=== PATIENT | female | born 1960 | race Caucasian/White ===

== ENCOUNTER 2024-03-30 14:58 | Inpatient (IN) | payer BC, MEDICARE ==
--- NOTE | 2024-03-30 15:44 | ED ---
General Adult HPI - General Chief complaint: Fall Stated complaint: Fracture Time Seen by Provider: 03/30/24 15:10 Source: patient, EMS Mode of arrival: EMS Limitations: no limitations - History of Present Illness Initial comments: 63-year-old female presents the emergency department after a slip on ice. Patient fell on top of her right ankle. Complains of pain in the right ankle and lower leg. Patient denies hitting her head. No loss of consciousness. She was given 2 mg of morphine from EMS and states it took her pain from a 10 to a 5. Patient also took 0.5 mg of lorazepam at home which is prescribed to her. Patient denies that she was outside for an extended period of time. Was able to crawl to call for EMS. Denies any chest pain, difficulty breathing, abdominal pain, nausea, vomiting. Patient is not on any blood thinners. No other alleviating, precipitating or modifying factors - Related Data Home Medications Medication Instructions Recorded Confirmed Acetaminophen [Tylenol 8 Hour] 650 mg PO DAILY 03/30/24 03/30/24 Acetaminophen [Tylenol 8 Hour] 650 mg PO DAILY PRN 03/30/24 03/30/24 Albuterol Sulfate [Ventolin HFA] 2 puff INHALATION RT-QID PRN 03/30/24 03/30/24 Clonazepam Odt 0.5mg 0.5 mg PO BID 03/30/24 03/30/24 L.acidoph,Paracasei, B.lactis 1 cap PO DAILY 03/30/24 03/30/24 [Probiotic] Montelukast [Singulair] 10 mg PO HS 03/30/24 03/30/24 Propylene Glycol/Peg 400/Pf 1 drop BOTH EYES QID PRN 03/30/24 03/30/24 [Systane 0.3-0.4% Ophth Dropperette] Rosuvastatin Calcium [Crestor] 40 mg PO HS 03/30/24 03/30/24 Travoprost [Travatan Z 0.004%] 1 drop BOTH EYES HS 03/30/24 03/30/24 Umeclidinium Brm/Vilanterol Tr 1 puff INHALATION RT-DAILY 03/30/24 03/30/24 [Anoro Ellipta 62.5-25 Mcg INH] Allergies Allergy/AdvReac Type Severity Reaction Status Date / Time Sulfa (Sulfonamide Allergy Rash/Hives Verified 03/31/24 13:13 Antibiotics) codeine AdvReac Nausea & Verified 03/31/24 13:13 Vomiting Review of Systems ROS Statement: Those systems with pertinent positive or pertinent negative responses have been documented in the HPI. ROS Other: All systems not noted in ROS Statement are negative. Past Medical History Past Medical History: Hyperlipidemia History of Any Multi-Drug Resistant Organisms: None Reported Past Surgical History: Cholecystectomy, Hysterectomy, Orthopedic Surgery, Tonsillectomy, Tubal Ligation Additional Past Surgical History / Comment(s): right shoulder Past Psychological History: Anxiety Smoking Status: Current every day smoker Past Alcohol Use History: Rare Past Drug Use History: None Reported General Exam Limitations: no limitations General appearance: alert, in no apparent distress Head exam: Present: atraumatic, normocephalic, normal inspection Eye exam: Present: normal appearance, PERRL, EOMI. Absent: scleral icterus, conjunctival injection, periorbital swelling ENT exam: Present: normal exam, mucous membranes moist Neck exam: Present: normal inspection. Absent: tenderness, meningismus, lym phadenopathy Respiratory exam: Present: normal lung sounds bilaterally. Absent: respiratory distress, wheezes, rales, rhonchi, stridor Cardiovascular Exam: Present: regular rate, normal rhythm, normal heart sounds. Absent: systolic murmur, diastolic murmur, rubs, gallop, clicks GI/Abdominal exam: Present: soft, normal bowel sounds. Absent: distended, tenderness, guarding, rebound, rigid Extremities exam: Present: other (Right lower extremity is in a splint. There is no ecchymosis, abrasion or laceration. Mild swelling. 2+ DP and PT pulses. Intact sensation. Cap refill <3 seconds) Course Vital Signs 03/30/24 03/30/24 15:01 19:47 Temperature 97.8 F 97.6 F Pulse Rate 89 84 Respiratory 20 20 Rate Blood Pressure 123/81 125/57 O2 Sat by Pulse 94 L 93 L Oximetry Procedures - Orthopedic Splinting/Casting Injury #1 Side: right Lower Extremity Injury Location: long leg Lower Extremity Immobilizer: posterior splint, stirrup splint, Ramon wrap Medical Decision Making - Medical Decision Making Was pt. sent in by a medical professional or institution (, PA, ANESTHESIA ATTENDING, urgent care, hospital, or usp...) When possible be specific @ -No Did you speak to anyone other than the patient for history (EMS, parent, family, police, friend...)? What history was obtained from this source @ -Spoke with EMS for history Did you review nursing and triage notes (agree or disagree)? Why? @ -I reviewed and agree with nursing and triage notes Were old charts reviewed (outside hosp., previous admission, EMS record, old EKG, old radiological studies, urgent care reports/EKG's, usp records)? Report findings @ -No old charts were reviewed Differential Diagnosis (chest pain, altered mental status, abdominal pain women, abdominal pain men, vaginal bleeding, weakness, fever, dyspnea, syncope, headache, dizziness, GI bleed, back pain, seizure, CVA, palpatations, mental health, musculoskeletal)? @ -Differential Musculoskeletal Muscular strain, contusion, ligament sprain, fracture, arthritis, septic arthritis, bursitis, cellulitis, muscle spasm, nerve compression, DVT, arterial occlusion, herpes zoster, electrolyte abnormality, tumor.... This is not meant to be in all inclusive list EKG interpreted by me (3pts min.). @ -yes which demonstrates sinus rhythm with a rate of 86. MS interval 112. QRS 86. QTc of 409. No acute ST segment elevations or depressions X-rays interpreted by me (1pt min.). @ -Yes which demonstrates distal tibia fracture with a proximal fibular fracture CT interpreted by me (1pt min.). @ -None done U/S interpreted by me (1pt. min.). @ -None done What testing was considered but not performed or refused? (CT, X-rays, U/S, labs)? Why? @ -None What meds were considered but not given or refused? Why? @ -None Did you discuss the management of the patient with other professionals (professionals i.e. DrAugustine, PA, ANESTHESIA ATTENDING, lab, RT, psych nurse, adoption social worker, laboratory assistant, teacher, parole hearing officer, vocational case manager)? Give summary @ -Spoke with Dr. Nam who will admit the patient. Spoke with Dr. Lawrence for medical clearance Was smoking cessation discussed for >3mins.? @ -No Was critical care preformed (if so, how long)? @ -No Were there social determinants of health that impacted care today? How? (Homelessness, low income, unemployed, alcoholism, drug addiction, transportation, low edu. Level, literacy, decrease access to med. care, [facility], rehab)? @ -No Was there de-escalation of care discussed even if they declined (Discuss DNR or withdrawal of care, Hospice)? DNR status @ -No What co-morbidities impacted this encounter? (DM, HTN, Smoking, COPD, CAD, Cancer, CVA, ARF, Chemo, Hep., AIDS, mental health diagnosis, sleep apnea, morbid obesity)? @ -COPD Was patient admitted / discharged? Hospital course, mention meds given and route, prescriptions, significant lab abnormalities, going to OR and other pertinent info. @ -Upon arrival patient seen and evaluated in bed 31. Thorough history and physical exam was performed. Patient administered pain medications. Laboratory studies are conducted. X-ray performed demonstrating left distal tibia and proximal fibula fracture. Results are discussed with the patient. I spoke with Dr. Nam. He will admit the patient. [facility] is notified that they are on for medical clearance Undiagnosed new problem with uncertain prognosis? @ -No Drug Therapy requiring intensive monitoring for toxicity (Heparin, Nitro, Insulin, Cardizem)? @ -No Were any procedures done? @ -right leg splint Diagnosis/symptom? @ -Acute fall, acute right fibular and tibia fracture Acute, or Chronic, or Acute on Chronic? @ -Acute Uncomplicated (without systemic symptoms) or Complicated (systemic symptoms)? @ -complicated Side effects of treatment? @ -No Exacerbation, Progression, or Severe Exacerbation? @ -No Poses a threat to life or bodily function? How? (Chest pain, [place], [place], pneumonia, PE, COPD, DKA, ARF, appy, cholecystitis, CVA, Diverticulitis, Homicidal, Suicidal, threat to staff... and all critical care pts) @ -No - Lab Data Result diagrams: 04/02/24 04:41 04/02/24 15:03 Lab Results 03/30/24 03/30/24 03/30/24 Range/Units 17:40 17:40 17:40 WBC 11.4 H (3.8-10.6) k/uL RBC 4.90 (3.80-5.40) m/uL Hgb 14.9 (11.4-16.0) gm/dL Hct 46.3 H (34.0-46.0) % MCV 94.5 (80.0-100.0) fL MCH 30.5 (25.0-35.0) pg MCHC 32.2 (31.0-37.0) g/dL RDW 12.8 (11.5-15.5) % Plt Count 259 (150-450) k/uL MPV 7.7 Immature Gran % (Auto) % Absolute Nucleated RBC % Neutrophils % 79 % Lymphocytes % 16 % Monocytes % 4 % Eosinophils % 1 % Basophils % 0 % Immature Gran # (0.00-0.04) X 10*3/uL Neutrophils # 9.0 H (1.3-7.7) k/uL Lymphocytes # 1.8 (1.0-4.8) k/uL Monocytes # 0.5 (0-1.0) k/uL Eosinophils # 0.1 (0-0.7) k/uL Basophils # 0.1 (0-0.2) k/uL NRBC/100 WBC Diff (0.00-0.01) X 10*3/uL PT (10.0-12.5) sec INR (<1.2) APTT (22.0-30.0) sec Sodium 135 L (137-145) mmol/L Potassium 4.1 (3.5-5.1) mmol/L Chloride 102 (98-107) mmol/L Carbon Dioxide 27 (22-30) mmol/L Anion Gap 6 mmol/L BUN 12 (7-17) mg/dL Creatinine 0.62 (0.52-1.04) mg/dL Est GFR (CKD-EPI) (>=60) Est GFR (CKD-EPI)AfAm >90 (>60 ml/min/1.73 sqM) Est GFR (CKD-EPI)NonAf >90 (>60 ml/min/1.73 sqM) BUN/Creatinine Ratio (12.00-20.00) Ratio Glucose 113 H (74-99) mg/dL Estimated Ave Glu mg/dL 111 mg/dL Hemoglobin A1c 5.5 (<=6.0) % Calcium 8.9 (8.4-10.2) mg/dL 03/30/24 03/31/24 03/31/24 Range/Units 18:10 03:03 03:03 WBC 6.01 (3.8-10.6) k/uL RBC 4.44 (3.80-5.40) m/uL Hgb 13.3 (11.4-16.0) gm/dL Hct 42.9 (34.0-46.0) % MCV 96.6 (80.0-100.0) fL MCH 30.0 (25.0-35.0) pg MCHC 31.0 L (31.0-37.0) g/dL RDW 12.6 (11.5-15.5) % Plt Count 228 (150-450) k/uL MPV 10.4 Immature Gran % (Auto) 0.30 % Absolute Nucleated RBC 0 % Neutrophils % 74.1 % Lymphocytes % 15.5 % Monocytes % 9.3 % Eosinophils % 0.3 % Basophils % 0.5 % Immature Gran # 0.02 (0.00-0.04) X 10*3/uL Neutrophils # 4.45 (1.3-7.7) k/uL Lymphocytes # 0.93 (1.0-4.8) k/uL Monocytes # 0.56 (0-1.0) k/uL Eosinophils # 0.02 L (0-0.7) k/uL Basophils # 0.03 (0-0.2) k/uL NRBC/100 WBC Diff 0 (0.00-0.01) X 10*3/uL PT 11.1 (10.0-12.5) sec INR 1.0 (<1.2) APTT 24.1 (22.0-30.0) sec Sodium 139 (137-145) mmol/L Potassium 4.4 (3.5-5.1) mmol/L Chloride 102 (98-107) mmol/L Carbon Dioxide 26.8 (22-30) mmol/L Anion Gap 10.20 mmol/L BUN 11.2 (7-17) mg/dL Creatinine 0.6 (0.52-1.04) mg/dL Est GFR (CKD-EPI) 100 (>=60) Est GFR (CKD-EPI)AfAm (>60 ml/min/1.73 sqM) Est GFR (CKD-EPI)NonAf (>60 ml/min/1.73 sqM) BUN/Creatinine Ratio 18.67 (12.00-20.00) Ratio Glucose 115 H (74-99) mg/dL Estimated Ave Glu mg/dL mg/dL Hemoglobin A1c (<=6.0) % Calcium 8.6 L (8.4-10.2) mg/dL Disposition Clinical Impression: Fall, Right tibial fracture, Right fibular fracture Disposition: ADMITTED IP TO THIS [facility] Condition: Stable Is patient prescribed a controlled substance at d/c from ED?: No Time of Disposition: 16:56 Decision to Admit Reason: Admit from EC Decision Date: 03/30/24 Decision Time: 16:56
[2024-03-30] MEDS: HYDROmorphone 1 MG/ML 1 ML SYRINGE IVP STA (15:52)
[2024-03-30] MEDS: HYDROmorphone 1 MG/ML 1 ML SYRINGE IM STA (15:55)
--- NOTE | 2024-03-30 16:15 | XR ---
EXAMINATION TYPE: XR ankle complete RT, XR tibia fibula RT DATE OF EXAM: 03/30/2024 COMPARISON: NONE HISTORY: Pain, fall TECHNIQUE: Frontal, lateral and oblique images of the right ankle are obtained. Frontal and lateral views of the right tibia/fibula were obtained. COMPARISON: None. FINDINGS: Acute oblique fracture of the distal tibial diaphysis with approximately 8 mm of shift of the distal fracture fragment anterior laterally. There is mild shortening. Additional mildly displace d oblique fracture of the proximal tibial metadiaphysis. Overlying soft tissue swelling. No dislocati on. No radiopaque foreign body. Ankle mortise appears intact. IMPRESSION: Acute displaced oblique fractures of the distal tibial diaphysis and proximal fibular metadiaphysis. [facility], , 03/30/2024 4:12 PM
[2024-03-30] MEDS ORDERED: NALOXONE 0.4 MG/ML 1 ML VIAL IV PRN (16:56)
[2024-03-30 17:59] LABS: Basophils # (A) 0.1 k/uL (0-0.2); Basophils % (A) 0 %; Eosinophils # (A) 0.1 k/uL (0-0.7); Eosinophils % (A) 1 %; HCT 46.3 % (34.0-46.0); HGB 14.9 gm/dL (11.4-16.0); Lymphocytes # (A) 1.8 k/uL (1.0-4.8); Lymphocytes % (A) 16 %; MCH 30.5 pg (25.0-35.0); MCHC 32.2 g/dL (31.0-37.0); MCV 94.5 fL (80.0-100.0); Mean Platelet Volume 7.7; Monocytes # (A) 0.5 k/uL (0-1.0); Monocytes % (A) 4 %; Neutrophils % (A) 79 %; Platelet Count 259 k/uL (150-450); RDW 12.8 % (11.5-15.5); WBC 11.4 k/uL (3.8-10.6)
[2024-03-30 18:12] LABS: African American GFR (CKD) >90 (>60 ml/min/1.73 sqM); Anion Gap 6 mmol/L; Blood Urea Nitrogen 12 mg/dL (7-17); Calcium 8.9 mg/dL (8.4-10.2); Carbon Dioxide 27 mmol/L (22-30); Chloride 102 mmol/L (98-107); Glucose 113 mg/dL (74-99); Non-African American GFR(CKD) >90 (>60 ml/min/1.73 sqM); Potassium 4.1 mmol/L (3.5-5.1); Sodium 135 mmol/L (137-145)
[2024-03-30 18:39] LABS: Partial Thromboplastin Time 24.1 sec (22.0-30.0); Prothrombin Time 11.1 sec (10.0-12.5)
--- NOTE | 2024-03-30 19:39 | XR ---
EXAMINATION TYPE: XR chest 2V DATE OF EXAM: 03/30/2024 5:14 PM COMPARISON: None. CLINICAL INDICATION: Female, 63 years old with history of pre operative eval, TECHNIQUE: XR chest 2V view(s) obtained. FINDINGS: The heart size is normal. The pulmonary vasculature is normal. The lungs are clear. IMPRESSION: 1. No acute pulmonary process. [facility], , 03/30/2024 7:37 PM
[2024-03-30] MEDS: SODIUM CHLORIDE 0.9% 1,000 ML IV SCH (21:00)
[2024-03-30] MEDS: MORPHINE SULFATE 4 MG/ML SYRINGE IVP PRN (21:00)
[2024-03-30] MEDS: clonazePAM 0.5 MG TAB PO SCH (21:53)
[2024-03-30] MEDS: MONTELUKAST 10 MG TAB PO SCH (21:53)
--- NOTE | 2024-03-30 23:13 | P.CONS ---
History of Present Illness - Reason for Consult Consult date: 03/30/24 - History of Present Illness Patient is a 63-year-old female with past medical history significant for COPD not on home oxygen, anxiety, and hyperlipidemia. She is admitted to orthopedic surgery and we are consulted for preoperative medical evaluation. She presented to the emergency department today after she slipped on ice, twisted her right leg, and fell onto her buttocks while getting out of the car. She denied hi tting her head or loss of consciousness. She states that she was only outside for about 5 minutes after this fall as she was able to crawl inside and her niece called EMS. She denies fever/chills, nausea/vomiting, chest pain, dyspnea, cough, palpitations, hematuria, melena/hematochezia. She reports unchanged intermittent epigastric pain. She is not on anticoagulation. At this time she has no significant complaints other than the ankle pain. She is a current smoker (1+ppd). She denies alcohol/recreational drug use. She is ambulatory without assistance normally. patient denies any episodes of OH, CHF exacerbation , arrhythmia or syncope in the past 1 month, denies any history of CVA, CAD, CHF, DM , or CKD Review of Systems Pertinent positives and negatives as discussed in HPI, a complete review of systems was performed and all other systems are negative. Past Medical History Past Medical History: COPD, Hyperlipidemia History of Any Multi-Drug Resistant Organisms: None Reported Past Surgical History: Cholecystectomy, Hysterectomy, Orthopedic Surgery, Tonsillectomy, Tubal Ligation Additional Past Surgical History / Comment(s): right shoulder Past Psychological History: Anxiety Smoking Status: Current every day smoker Past Alcohol Use History: Rare Past Drug Use History: None Reported Medications and Allergies Home Medications Medication Instructions Recorded Confirmed Type Acetaminophen [Tylenol 8 Hour] 650 mg PO DAILY 03/30/24 03/30/24 History Acetaminophen [Tylenol 8 Hour] 650 mg PO DAILY PRN 03/30/24 03/30/24 History Albuterol Sulfate [Ventolin HFA] 2 puff INHALATION RT-QID PRN 03/30/24 03/30/24 History Clonazepam Odt 0.5mg 0.5 mg PO BID 03/30/24 03/30/24 History L.acidoph,Paracasei, B.lactis 1 cap PO DAILY 03/30/24 03/30/24 History [Probiotic] Montelukast [Singulair] 10 mg PO HS 03/30/24 03/30/24 History Propylene Glycol/Peg 400/Pf 1 drop BOTH EYES QID PRN 03/30/24 03/30/24 History [Systane 0.3-0.4% Ophth Dropperette] Rosuvastatin Calcium [Crestor] 40 mg PO HS 03/30/24 03/30/24 History Travoprost [Travatan Z 0.004%] 1 drop BOTH EYES HS 03/30/24 03/30/24 History Umeclidinium Brm/Vilanterol Tr 1 puff INHALATION RT-DAILY 03/30/24 03/30/24 History [Anoro Ellipta 62.5-25 Mcg INH] Allergies Allergy/AdvReac Type Severity Reaction Status Date / Time Sulfa (Sulfonamide Allergy Rash/Hives Verified 03/30/24 18:23 Antibiotics) Physical Exam Vitals: Vital Signs Temp Pulse Resp BP Pulse Ox 03/30/24 15:01 97.8 F 89 20 123/81 94 L Intake and Output 03/30/24 03/30/24 03/30/24 06:59 14:59 22:59 Other: Weight 74.843 kg Vital signs reviewed General: Nontoxic, no distress, appears stated age, well-appearing Derm: Warm, dry, intact, no cyanosis Head: Atraumatic, normocephalic, symmetric Eyes: EOMI, anicteric sclera, PERRL Ears: Normal appearing, no external lesions, hearing intact Nose: Normal appearing, no external lesions Mouth: No lip lesion, mucus membranes moist, no tonsilar hypertrophy or exudate; partial edentulism Neck: Supple, without lesions, trachea midline Cardiovascular: S1-S2 regular, no murmur, no pedal edema Lungs: Mild diffuse expiratory wheezes, no rhonchi, no rales, no accessory muscle use Abdominal: Soft, mild epigastric tenderness (not new, intermittent), bowel sounds present Extremities: Muscle strength 5/5 bilateral UE and LLE, radial pulses 2+ bilateral, posterior tibial pulse 1+ LLE Neuro: Alert, oriented x 4, gross neurological examination did not reveal any focal deficits. Cranial nerves II to XII grossly intact. Psych: Appropriate affect and mood Results CBC & Chem 7: 03/30/24 17:40 03/30/24 17:40 Labs: Abnormal Lab Results - Last 24 Hours (Table) 03/30/24 03/30/24 Range/Units 17:40 17:40 WBC 11.4 H (3.8-10.6) k/uL Hct 46.3 H (34.0-46.0) % Neutrophils # 9.0 H (1.3-7.7) k/uL Sodium 135 L (137-145) mmol/L Glucose 113 H (74-99) mg/dL Assessment and Plan Assessment: Patient is a 63-year-old female with a past medical history significant for COPD not on home oxygen and hyperlipidemia admitted for ORIF of the right ankle. Plan: Active #. Leukocytosis with neutrophilic predominance, likely reactive to acute fracture WBC 11.4 Monitor CBC afebrile #. Hyperglycemia No history of diabetes or steroid use Obtain A1c #. Nicotine dependence Discussed smoking cessation Patient currently using nicotine patch prior to arrival in the hospital #. Acute displaced oblique fractures of the distal tibial diaphysis and proximal fibular metadiaphysis Management per orthopedic surgery Pain management per orthopedic surgery Chronic #. COPD not on home oxygen Continue home albuterol 4 times daily as needed Continue home Singulair 10 mg p.o. at bedtime Continue home Anoro Ellipta daily #. Hyperlipidemia Continue home Crestor 40 mg p.o. at bedtime CODE STATUS: Full Code Preoperative evaluation RCRI class I, CUELLAR 0.15% EKG shows normal sinus rhythm with ventricular rate 86 bpm, OH 112 ms, QRS 86 ms, QTc 409 ms Chest x-ray: No acute pulmonary process METS >4 Patient is low risk for an intermediate risk procedure. Patient is medically optimized. consider bipap post operatively to minimize chances of extubation failure due to COPD and body habitus, and encourage use of IS post operatively I have seen and evaluated the patient today. I Discussed the case with the resident and agree with the resident's findings I edited the assessment and plan as necessary as documented in the resident's note.
[2024-03-31] MEDS: HYDROcodone/APAP 5-325MG 1 EACH TAB PO PRN (00:31)
[2024-03-31] MEDS: ONDANSETRON 4 MG/2 ML VIAL IVP PRN (02:11)
[2024-03-31 08:53] LABS: Basophils # (A) 0.03 X 10*3/uL (0.00-0.10); Basophils % (A) 0.5 %; Eosinophils # (A) 0.02 X 10*3/uL (0.04-0.35); Eosinophils % (A) 0.3 %; HCT 42.9 % (37.2-46.3); HGB 13.3 g/dL (12.0-15.0); Lymphocytes # (A) 0.93 X 10*3/uL (0.90-5.00); Lymphocytes % (A) 15.5 %; MCV 96.6 FL (80.0-97.0); Mean Platelet Volume 10.4 FL (9.5-12.2); Monocytes # (A) 0.56 X 10*3/uL (0.20-1.00); Monocytes % (A) 9.3 %; NRBC Per 100 WBC 0 X 10*3/uL (0.00-0.01); Neutrophils # (A) 4.45 X 10*3/uL (1.80-7.70); Neutrophils % (A) 74.1 %; Platelet Count 228 X 10*3/uL (140-440); RBC 4.44 X 10*6/uL (4.10-5.20); RDW 12.6 % (11.5-14.5); WBC 6.01 X 10*3/uL (4.50-10.00)
[2024-03-31 08:55] LABS: BUN/Creat Ratio 18.67 Ratio (12.00-20.00); Blood Urea Nitrogen 11.2 mg/dL (9.0-27.0); Calcium 8.6 mg/dL (8.7-10.3); Carbon Dioxide 26.8 mmol/L (21.6-31.8); Chloride 102 mmol/L (96-109); Glucose 115 mg/dL (70-110); Potassium 4.4 mmol/L (3.5-5.5); Sodium 139 mmol/L (135-145)
[2024-03-31] MEDS: ALBUTEROL NEBULIZED 2.5 MG/3 ML INHALATION PRN (09:20)
[2024-03-31] MEDS: TIOTROPIUM 2.5 MCG INHALER INHALATION SCH (09:20)
[2024-03-31] MEDS: FORMOTEROL FUMARATE 20 MCG/2 ML NEBU INHALATION SCH (09:20)
--- NOTE | 2024-03-31 10:32 | P.HPOR ---
History of Present Illness H&P Date: 03/31/24 Chief Complaint: Right lower extremity pain status post fall The patient is seen and examined at bedside. She is a 63-year-old female who is from [place] was here visiting her father and was getting out of her car and slipped and fell. She had sudden acute pain in her right leg. She is with her daughter. She did not lose consciousness but was unable to get up and had obvious deformity in her right lower extremity with her pain. She denies any chest pain or shortness of breath. She denies any prior history of problems or injury in the right leg. She denied any problems in her upper extremities her neck or back or her other leg. She says she does have history of COPD and emphysema. She has been on disability because of this for several years. She denies any changes to bowel bladder function. Denies any other specific pain or trauma other than her right leg Review of Systems As stated per HPI. She takes medication for her COPD emphysema. She has been a chronic smoker since she was 17 years old with greater than [id number] history. She is normally a community ambulator without any assistance. She does not use any assistive device. She does not use oxygen at home. Past Medical History Past Medical History: COPD, Hyperlipidemia History of Any Multi-Drug Resistant Organisms: None Reported Past Surgical History: Cholecystectomy, Hysterectomy, Orthopedic Surgery, Tonsillectomy, Tubal Ligation Additional Past Surgical History / Comment(s): right shoulder Past Anesthesia/Blood Transfusion Reactions: Previous Problems w/ Anesthesia Additional Past Anesthesia/Blood Transfusion Reaction / Comment(s): No hx. blood transfusion. O2 drops while under anesthesia per pt. Past Psychological History: Anxiety Smoking Status: Current every day smoker Past Alcohol Use History: Rare Past Drug Use History: None Reported Medications and Allergies Home Medications Medication Instructions Recorded Confirmed Type Acetaminophen [Tylenol 8 Hour] 650 mg PO DAILY 03/30/24 03/30/24 History Acetaminophen [Tylenol 8 Hour] 650 mg PO DAILY PRN 03/30/24 03/30/24 History Albuterol Sulfate [Ventolin HFA] 2 puff INHALATION RT-QID PRN 03/30/24 03/30/24 History Clonazepam Odt 0.5mg 0.5 mg PO BID 03/30/24 03/30/24 History L.acidoph,Paracasei, B.lactis 1 cap PO DAILY 03/30/24 03/30/24 History [Probiotic] Montelukast [Singulair] 10 mg PO HS 03/30/24 03/30/24 History Propylene Glycol/Peg 400/Pf 1 drop BOTH EYES QID PRN 03/30/24 03/30/24 History [Systane 0.3-0.4% Ophth Dropperette] Rosuvastatin Calcium [Crestor] 40 mg PO HS 03/30/24 03/30/24 History Travoprost [Travatan Z 0.004%] 1 drop BOTH EYES HS 03/30/24 03/30/24 History Umeclidinium Brm/Vilanterol Tr 1 puff INHALATION RT-DAILY 03/30/24 03/30/24 History [Anoro Ellipta 62.5-25 Mcg INH] Allergies Allergy/AdvReac Type Severity Reaction Status Date / Time Sulfa (Sulfonamide Allergy Rash/Hives Verified 03/30/24 18:23 Antibiotics) Physical Examination Osteopathic Statement: *. No significant issues noted on an osteopathic structural exam other than those noted in the History and Physical/Consult. HEENT normocephalic atraumatic. Her chest has good excursion deep inspiration expiration. Abdomen soft nontender. Neck and back are nontender to palpation range of motion. Upper extremities have full active and passive range of motio n. Left lower extremity is nontender to palpation range of motion. - Fracture right tibia/fibula Appearance: other (Her right leg is in the splint. Her calf is overall soft. She has tenderness over anterior tibia at the distal and middle third. Her thighs soft. Her toes are pink and warm and she has good motion at her toes.) Compartments: soft Proximal joint involvement: No Distal joint involvement: No Results - Labs Labs: Abnormal Lab Results - Last 24 Hours (Table) 03/30/24 03/30/24 03/31/24 Range/Units 17:40 17:40 03:03 WBC 11.4 H (3.8-10.6) k/uL Hct 46.3 H (34.0-46.0) % MCHC 31.0 L (32.0-37.0) g/dL Neutrophils # 9.0 H (1.3-7.7) k/uL Eosinophils # 0.02 L (0.04-0.35) X 10*3/uL Sodium 135 L (137-145) mmol/L Glucose 113 H (74-99) mg/dL Calcium (8.7-10.3) mg/dL 03/31/24 Range/Units 03:03 WBC (3.8-10.6) k/uL Hct (34.0-46.0) % MCHC (32.0-37.0) g/dL Neutrophils # (1.3-7.7) k/uL Eosinophils # (0.04-0.35) X 10*3/uL Sodium (137-145) mmol/L Glucose 115 H (74-99) mg/dL Calcium 8.6 L (8.7-10.3) mg/dL H & H 03/30/24 03/31/24 Range/Units 17:40 03:03 Hgb 14.9 13.3 (11.4-16.0) gm/dL Hct 46.3 H 42.9 (34.0-46.0) % Coagulation 03/30/24 Range/Units 18:10 INR 1.0 (<1.2) Result Diagrams: 03/31/24 03:03 03/31/24 03:03 - Diagnostic results Ankle/Foot x-ray: report reviewed, image reviewed (X-rays of her ankle and right tibia and fibula show a displaced spiral fracture at the shaft of the tibia at the junction of the middle and distal third. There is a proximal fibula fracture with minimal displacement.) Assessment and Plan Assessment: Acute traumatic tibia shaft and fibula fracture due to fall, neurovascularly intact History of COPD emphysema Plan: Acute traumatic tibia shaft and fibula fracture due to fall, neurovascularly intact History of COPD emphysema The patient has a new acute right tibia and fibula fracture with displacement at the tibial shaft. I think her best course of treatment would be to pursue surgical intervention for fixation. I had a long discussion with the patient regards to her injury and her tibia and fibula fracture. We discussed various treatment options ranging from conservative to surgical intervention. I recommend that the best surgical option for her would be to perform surgical internal fixation of the tibia to allow for realignment approximation and give her the best chance of healing and function for the future. I discussed the risk complications alternatives and benefits of treatment. I discussed the risks of surgery including not limited to the risk of bleeding risk of infection risk of need for further surgery risk of decrease or loss of motion loss of function malunion nonunion hardware failure nerve damage problems with anesthesia problems with her heart and lungs and the fact that surgery may not alleviate her symptoms and that she is at some increased risk of nonunion given her chronic smoking history. I answered all of her questions best my ability limb she understand and she elects to proceed with surgical intervention for right tibia open reduction internal fixation with intramedullary patricia fixation. She will sign informed consent. The patient has had evaluation with medicine service and is cleared for medical risk in regards to her surgery. She understands that she has significant COPD and emphysema which will need to be closely monitored. The patient lives in [place]. She was visiting here in [place] at the time of her injury and will pursue treatment here. She is hopeful that soon after her surgery she will be able to return to her home in [place]. I think that is reasonable to continue her healing. It is likely that her full healing will take several months and would involve physical therapy and rehabilitation in the upcoming weeks. She understands this and will try to make plans accordingly Time with Patient: Greater than 30
--- NOTE | 2024-03-31 12:23 | P.PN ---
Subjective Progress Note Date: 03/31/24 Patient is a 63-year-old female with past medical history significant for COPD not on home oxygen, anxiety, and hyperlipidemia. She is admitted to orthopedic surgery and we are consulted for preoperative medical evaluation. She presented to the emergency department today after she slipped on ice, twisted her right leg, and fell onto her buttocks while getting out of the car. She denied hitting her head or loss of consciousness. She states that she was only outside for about 5 minutes after this fall as she was able to crawl inside and her niece called EMS. She denies fever/chills, nausea/vomiting, chest pain, dyspnea, cough, palpitations, hematuria, melena/hematochezia. She reports unchanged intermittent epigastric pain. She is not on anticoagulation. At this time she has no significant complaints other than the ankle pain. She is a current smoker (1+ppd). She denies alcohol/recreational drug use. She is ambulatory without assistance normally. patient denies any episodes of NE, CHF exacerbation , arrhythmia or syncope in the past 1 month, denies any history of CVA, CAD, CHF, DM , or CKD 03/31/24 - Patient seen and examined at bedside this morning. No acute events overnight. Surgery to repair right tib/fib fracture scheduled for today, 03/31/2024. She was resting comfortably in bed, with no acute complaints at this time. REVIEW OF SYSTEMS: Pertinent positives and negatives noted in HPI. Physical Exam: General: Nontoxic, no distress, appears stated age, well-appearing Derm: Warm, dry, intact, no cyanosis Head: Atraumatic, normocephalic, symmetric Eyes: EOMI, anicteric sclera, PERRL Ears: Normal appearing, no external lesions, hearing intact Nose: Normal appearing, no external lesions Mouth: No lip lesion, mucus membranes moist, no tonsilar hypertrophy or exudate; partial edentulism Neck: Supple, without lesions, trachea midline Cardiovascular: S1-S2 regular, no murmur, no pedal edema Lungs: Mild diffuse expiratory wheezes, no rhonchi, no rales, no accessory muscle use Abdominal: Soft, mild epigastric tenderness (not new, intermittent), bowel sounds present Extremities: Muscle strength 5/5 bilateral UE and LLE, radial pulses 2+ bilateral, posterior tibial pulse 1+ LLE Neuro: Alert, oriented x 4, gross neurological examination did not reveal any focal deficits. Cranial nerves II to XII grossly intact. Psych: Appropriate affect and mood Data Received Today: Labs: WBC 6.01, hemoglobin 13.3, hematocrit 43.9, platelet 228; sodium 139, potassium 4.4, bicarb 26.8, BUN 11.2, creatinine 0.6, calcium 8 point Imagining: No new imaging Assessment and plan Patient is a 63-year-old female with a past medical history significant for COPD not on home oxygen and hyperlipidemia admitted for ORIF of the right ankle. #Leukocytosis with neutrophilic predominance, likely reactive to acute fracture - resolved -WBC 6.01 -Monitor CBC -afebrile #Hyperglycemia -No history of diabetes or steroid use -Obtain A1c #Nicotine dependence -Discussed smoking cessation -Nicotine 21 mg/24-hour patch daily ordered #Acute displaced oblique fractures of the distal tibial diaphysis and proximal fibular metadiaphysis -Management per orthopedic surgery -Pain management per orthopedic surgery Preoperative evaluation RCRI class I, CUELLAR 0.15% EKG shows normal sinus rhythm with ventricular rate 86 bpm, FL 112 ms, QRS 86 ms, QTc 409 ms Chest x-ray: No acute pulmonary process METS >4 Patient is low risk for an intermediate risk procedure. Patient is medically optimized. consider bipap post operatively to minimize chances of extubation failure due to COPD and body habitus, and encourage use of IS post operatively Chronic #COPD not on home oxygen -Continue home albuterol 4 times daily as needed -Continue home Singulair 10 mg p.o. at bedtime -Continue home Anoro Ellipta daily #Hyperlipidemia -Continue home Crestor 40 mg p.o. at bedtime #Depression/anxiety From resume home Klonopin 0.5 mg twice daily DVT ppx: Per the orthopedic surgery team Code status: Full code F: None E: Replete as needed N: N.p.o. for surgery, advance to regular diet A: Ambulatory Anticipated discharge place: Pending clinical course Anticipated discharge time: Pending clinical course Dictation was produced using [employer] dictation software. please excuse any grammatical, word or spelling errors. I have seen and evaluated the patient today. Discussed with the resident and agree with the residents finding and plan as documented in the resident's note. Changes highlighted in blue font. Objective - Vital Signs Vital signs: Vital Signs Temp 97.9 F 03/31/24 08:25 Pulse 90 03/31/24 09:28 Resp 16 03/31/24 08:25 BP 103/69 03/31/24 08:25 Pulse Ox 95 03/31/24 09:24 FiO2 Intake & Output 03/30/24 03/31/24 03/31/24 18:59 06:59 18:59 Intake Total 240 Balance 240 Weight 74.843 kg 74.843 kg Intake: Oral 240 Other: Voiding Method External Catheter # Voids 2 - Labs CBC & Chem 7: 03/31/24 16:43 04/01/24 03:09 Labs: Abnormal Lab Results - Last 24 Hours (Table) 03/30/24 03/30/24 03/31/24 Range/Units 17:40 17:40 03:03 WBC 11.4 H (3.8-10.6) k/uL Hct 46.3 H (34.0-46.0) % MCHC 31.0 L (32.0-37.0) g/dL Neutrophils # 9.0 H (1.3-7.7) k/uL Eosinophils # 0.02 L (0.04-0.35) X 10*3/uL Sodium 135 L (137-145) mmol/L Glucose 113 H (74-99) mg/dL Calcium (8.7-10.3) mg/dL 03/31/24 Range/Units 03:03 WBC (3.8-10.6) k/uL Hct (34.0-46.0) % MCHC (32.0-37.0) g/dL Neutrophils # (1.3-7.7) k/uL Eosinophils # (0.04-0.35) X 10*3/uL Sodium (137-145) mmol/L Glucose 115 H (74-99) mg/dL Calcium 8.6 L (8.7-10.3) mg/dL
[2024-03-31] MEDS: IV FLUID CONTINUATION 1,000 ML IV ONE (12:53)
[2024-03-31] MEDS: IPRATROPIUM-ALBUTEROL 3 ML NEB INHALATION STA (13:37)
[2024-03-31] MEDS: LACTATED RINGERS 1,000 ML BAG IV STA (13:41)
[2024-03-31] MEDS: DEXAMETHASONE SOD PHOSPHATE 4 MG/ML 1 ML VIAL IVP STA (13:46)
[2024-03-31] MEDS ORDERED: KETAMINE HCL IN 0.9 % NACL 50 MG/5 ML SYRINGE ONE (13:48)
[2024-03-31] MEDS ORDERED: MIDAZOLAM 2 MG/2 ML VIAL ONE (13:48)
[2024-03-31] MEDS ORDERED: PROPOFOL 10 MG/ML 20 ML VIAL IV ONE (13:48)
[2024-03-31] MEDS ORDERED: PHENYLEPHRINE 10 MG/ML VIAL ONE (13:48)
[2024-03-31] MEDS: SODIUM CHLORIDE 0.9% 100 ML with ceFAZolin 2,000 MG IV ONE (13:53)
[2024-03-31] MEDS: LACTATED RINGERS 1,000 ML IV ONE (14:47)
--- NOTE | 2024-03-31 15:31 | XR ---
Intraoperative/procedural fluoroscopic services were provided for ORIF right tib-fib/fib for distal t ibial diaphysis fracture. Redemonstration of proximal tibial metadiaphysis fracture. Total fluoroscop y time is 66.9 seconds with a total of 5 submitted images to PACS. Total DAP [id number] mGym2. Please s ee the operative note for further details. [facility], , 03/31/2024 3:29 PM
[2024-03-31] MEDS ORDERED: NALOXONE 0.4 MG/ML 1 ML VIAL IV PRN (15:45)
[2024-03-31] MEDS ORDERED: traMADol 50 MG TAB PO PRN (15:45)
--- NOTE | 2024-03-31 16:00 | P.OP ---
Date of Procedure: 03/31/24 Preoperative Diagnosis: Acute traumatic right tibia and fibula shaft fracture with displacement, neurovascularly intact Status post fall Inability to ambulate due to fracture Postoperative Diagnosis: Same Anesthesia: GETA Pathology: other (Tibial reamings to pathology) Condition: stable Disposition: PACU Description of Procedure: Preoperative diagnosis: Acute traumatic right tibia and fibula shaft fracture with displacement, neurovascularly intact Status post fall Inability to ambulate due to fracture Postoperative diagnosis: Same Procedure: Internal fixation of right tibia and fibula fracture with intramedullary patricia at the right tibia Use of fluoroscopic guidance Closed reduction Surgeon: Dr. Cyril Martinez.: Dr. Hany Ji who is present that the entire the case persistence during positioning dissection exposure placement of hardware and closure Anesthesia: General Per Jessica Estimated blood loss: Approximately 50 cc Tourniquet time: 66 minutes Components implanted: [employer] tibial patricia measuring 28 x 8.5 cm with 2 proximal screws and 2 distal screws Disposition: To recovery room in good stable condition Operative indications The patient sustained a injury with a fall on the ice from a standing height while getting out of her car and suffered a tibial shaft fracture with proximal fibula fracture which was displaced and angulated. She was neurovascularly intact. She denied any other injuries or any other problems. She had not been having any problems with her right lower extremity prior to the fall. She was normally a community ambulator without any assistance. We were involved in the case in regard to his hip fracture. She normally lives in [place] but was in town visiting her father here in [place] when she fell. After evaluation it was determined that they would be a candidate for tibial shaft internal fixation and stabilization via surgical intervention. This would give them the best chance of mobilization and ambulation. We discussed the range of treatment options from conservative to surgical. They elected proceed with surgical intervention. We answered their questions to the best of our ability healing which they can understand. They signed an informed consent. Operative summary After obtaining informed consent evaluation by anesthesia, preoperative evaluation and clearance for medical service, the patient was identified and prepped [place] area and the surgical site was marked. There brought to the operating room where the given appropriate anesthesia spinal anesthetic under sterile condition by the anesthesia department in standard fashion without any complications. Once the anesthesia was established we were able to position the patient. The patient was placed on a fracture table in a supine position being careful had any bony prominences and pressure points. We able to expose and prepare toward her right lower extremity. A small bump was placed behind her right gluteus and her right lower extremities prepped and draped in the normal standard fashion. A nonsterile tourniquet had been placed at her proximal thigh and her leg was elevated exsanguinated and the tourniquet was raised to 250 mmHg. It was utilized for a total of 66 minutes. Appropriate keystone time and timeout was completed. We will proceed. A small incision was made at the midline of right lower extremity over patellar tendon. Dissection was taken down to the peritenon which was split and the patella was split in line with its fibers at the midportion. We able to gain access to the proximal anterior aspect of the tibial plateau and a guidepin was used to establish the starting hole at the appropriate placement. The appropriate position was confirmed with C-arm guidance biplanar. Were able to advance the guidepin and then using a tissue protection sleeve a starting hole was reamed at the anterior proximal tibia. We were able to then place a flexible guidewire down the shaft of the tibia and holding the fracture in good alignment good position it was able to cross the fracture site into the distal tibia to the metaphyseal diaphyseal junction. It was measured and found to be approximately 29 cm. With this in place we then proceeded with sequential reaming. The guide sleeve and tissue protector helps protect the patellar tendon during the reaming and we reamed up to a 10 mm. The wound was kalyan irrigated and suctioned dry and we chose the appropriate size patricia 28 x 8.5. The patricia was able to be advanced with the appropriate jig over the top of the guide patricia. There is malleted in position across the fracture site and into the distal tibia at the metaphyseal diaphyseal junction. The fracture was held in excellent alignment and position throughout. The guide was was able to be removed and we used the proximal screw jig to place 2 screws at the proximal tibia using the guide sleeve and small incisions to place proximal locking screws x 2. They are placed in good alignment good position with excellent bony purchase and this was confirmed with C-arm guidance. With the proximal screws intact we were able to remove the proximal jig. There was good alignment position of the hardware proximally at the fracture site and distally. We were then able to proceed with placement of distal locking screws. Using a freehand technique and C-arm guidance we will place distal locking screws x 2 from the medial to lateral position. They are placed in good alignment good position with excellent bony purchase. This construct was checked and found to have excellent stability. The fracture had excellent alignment and position. Final C-arm images were saved. The wound was copiously irrigated and suctioned dry as it had been on periodically without the case. The peritenon at the patellar tendon was closed with 4-0 Vicryl. Subcutaneous tissue was closed 2-0 Vicryl and the skin was closed with clarita at all of the incision sites. The wounds were cleaned and dried and dressed with Telfa ABDs and a Ramon wrap. The tourniquet was dropped at 66 minutes draped broken down and the patient was able to be transferred back to her hospital bed in supine position being careful protect her airway and neck. Once stable to patient was transferred back to the postanesthesia care unit to be readmitted for pain control and DVT prophylaxis medical management and monitoring and mobilization we will continue follow patient closely throughout their postoperative course.
[2024-03-31] MEDS: DEXAMETHASONE SOD PHOSPHATE 4 MG/ML 1 ML VIAL IM STA (17:22)
[2024-03-31] MEDS: NICOTINE 21MG/24HR PATCH TRANSDERM SCH (17:32)
[2024-03-31 18:40] LABS: Appearance,Urine Clear (Clear); Bilirubin,Urine Negative (Negative); Blood,Urine Negative (Negative); Color,Urine Yellow; Glucose,Urine (UA) Negative (Negative); Ketones,Urine Negative (Negative); Leukocyte Esterase,Urine Negative (Negative); Nitrite,Urine Negative (Negative); Protein,Urine Negative (Negative); Specific Gravity,Urine 1.012 (1.001-1.035); Urobilinogen,Urine <2.0 mg/dL (<2.0)
[2024-03-31 19:12] LABS: Basophils # (A) 0.01 X 10*3/uL (0.00-0.10); Basophils % (A) 0.2 %; Eosinophils # (A) 0.01 X 10*3/uL (0.04-0.35); Eosinophils % (A) 0.2 %; HCT 40.7 % (37.2-46.3); HGB 12.8 g/dL (12.0-15.0); Lymphocytes # (A) 0.46 X 10*3/uL (0.90-5.00); Lymphocytes % (A) 7.4 %; MCH 30.7 pg (27.0-32.0); MCHC 31.4 g/dL (32.0-37.0); MCV 97.6 FL (80.0-97.0); Mean Platelet Volume 10.4 FL (9.5-12.2); Monocytes # (A) 0.13 X 10*3/uL (0.20-1.00); Monocytes % (A) 2.1 %; NRBC Per 100 WBC 0 X 10*3/uL (0.00-0.01); Neutrophils # (A) 5.62 X 10*3/uL (1.80-7.70); Neutrophils % (A) 89.8 %; Platelet Count 210 X 10*3/uL (140-440); RBC 4.17 X 10*6/uL (4.10-5.20); RDW 12.7 % (11.5-14.5); WBC 6.25 X 10*3/uL (4.50-10.00)
[2024-03-31] MEDS: ATORVASTATIN 80 MG TAB PO SCH (19:45)
[2024-03-31] MEDS: SENNOSIDES-DOCUSATE SODIUM 1 EACH TAB PO SCH (20:51)
[2024-04-01 04:14] LABS: African American GFR (CKD) >90 (>60 ml/min/1.73 sqM); Albumin 3.3 g/dL (3.5-5.0); Anion Gap 8 mmol/L; Blood Urea Nitrogen 8 mg/dL (7-17); Calcium 8.7 mg/dL (8.4-10.2); Carbon Dioxide 28 mmol/L (22-30); Chloride 99 mmol/L (98-107); Glucose 123 mg/dL (74-99); Non-African American GFR(CKD) >90 (>60 ml/min/1.73 sqM); Potassium 4.2 mmol/L (3.5-5.1); Sodium 135 mmol/L (137-145); Total Protein 5.3 g/dL (6.3-8.2)
[2024-04-01 04:15] LABS: ALT 372 U/L (4-34); AST 270 U/L (14-36); Albumin/Globulin Ratio 1.7; Alkaline Phosphatase 101 U/L (38-126); Total Bilirubin 0.6 mg/dL (0.2-1.3)
--- NOTE | 2024-04-01 08:40 | P.PN ---
Progress Note - Text Progress Note Date: 04/01/24 Orthopedics: History of present illness: Patient is a very pleasant 63-year-old female who is seen examined at the bedside for follow-up evaluation for her right lower extremity. She is status post internal fixation of right tibia and fibular fracture with intramedullary patricai of the right tibia performed yesterday, 03/31/2024. She does continue to have some pain at her right lower extremity towards the knee, over the marti, and at the ankle and foot. Her dressing is clean, dry, and intact over the right lower extremity. She is nonweightbearing on the right lower extremity. Her pain is currently being controlled with morphine. She has tried hydrocodone 3 different times but had vomited each time. She is then to try this medication again today after eating food. She is looking forward to working with physical therapy to increase her mobility and ambulation. We discussed she is strict nonweightbearing on her right lower extremity. We did discuss a prescription will be written, signed, provided to case management to obtain a walker. Patient will continue be seen exam by medicine for her other medical diagnoses. Patient will remain in the hospital over the next 1 to 2 days prior to discharge locally. She is currently visiting family in [facility]. She resides in [place], [place]. Physical Exam: Patient is awake, alert, and oriented 3 Vital signs stable Good chest excursion with deep inspiration and expiration Dressing over the right lower extremities clean, dry, and intact No pain with palpation over the right thigh Neurovascular intact right lower extremity Patient is able to wiggle toes of the right foot without difficulty Assessment: Status post internal fixation of right tibia and fibular fracture with intramedullary patricia of the right tibia performed yesterday, 03/31/2024. Status post fall Right lower extremity pain Right tibia fracture Right fibular fracture Hyperglycemia Nicotine dependence Plan: 1. Patient is status post internal fixation of right tibia and fibular fracture with intramedullary patricia of the right tibia performed yesterday, 03/31/2024. She is strict nonweightbearing on the right lower extremity. She may work with physical therapy to increase her mobility and ambulation with assistance of a walker while remaining nonweightbearing on the right lower extremity. 2. Will continue pain control with IV morphine and attempt oral hydrocodone. She has had difficulty with hydrocodone due to vomiting. She will try this medication again today with medicine. If she is able to tolerate this medicine, we will plan to discharge the patient home with hydrocodone at the time of discharge. Prescription will be written, signed, provided to case management to obtain a walker to help the patient aid in ambulation in the outpatient setting following discharge 4. Patient will continue be seen examined by medicine for her other medical diagnoses 5. Patient will remain in the hospital next 1 to 2 days prior to discharge. She will plan to discharge home locally with her family. Patient does reside in [place], [place]. We will plan to have her remain in [place], [place] for 1 week with plans to follow-up evaluation next 04/08/2024, for further evaluation in the outpatient setting with Dr. Leonardo aNm at [facility]. We will continue to follow the patient closely.
[2024-04-01] MEDS: ONDANSETRON 4 MG/2 ML VIAL IVP PRN (08:52)
[2024-04-01] MEDS ORDERED: ARTIFICIAL TEARS-HYPROMELLOSE DROPS 15 ML BTL BOTH EYES PRN (10:45)
--- NOTE | 2024-04-01 11:15 | P.PN ---
Subjective Progress Note Date: 04/01/24 Patient is a 63-year-old female with past medical history significant for COPD not on home oxygen, anxiety, and hyperlipidemia. She is admitted to orthopedic surgery and we are consulted for preoperative medical evaluation. She presented to the emergency department today after she slipped on ice, twisted her right leg, and fell onto her buttocks while getting out of the car. She denied hitting her head or loss of consciousness. She states that she was only outside for about 5 minutes after this fall as she was able to crawl inside and her niece called EMS. She denies fever/chills, nausea/vomiting, chest pain, dyspnea, cough, palpitations, hematuria, melena/hematochezia. She reports unchanged intermittent epigastric pain. She is not on anticoagulation. At this time she has no significant complaints other than the ankle pain. She is a current smoker (1+ppd). She denies alcohol/recreational drug use. She is ambulatory without assistance normally. patient denies any episodes of VT, CHF exacerbation , arrhythmia or syncope in the past 1 month, denies any history of CVA, CAD, CHF, DM , or CKD 03/31/24 - Patient seen and examined at bedside this morning. No acute events overnight. Surgery to repair right tib/fib fracture scheduled for today, 03/31/2024. She was resting comfortably in bed, with no acute complaints at this time. 04/01/24 - Patient seen and examined at bedside this morning. No acute events overnight. General when her surgery yesterday, stated that she feels. She was resting comfortably bed, with no acute complaints at this time. Utilizing 3 L nasal cannula while saturating 96% this morning. Blood pressure remains soft at 98/53. She was seen by the physical therapy team, and began work on how to best maneuver utilizing a walker upon discharge. REVIEW OF SYSTEMS: Pertinent positives and negatives noted in HPI. Physical Exam: General: Nontoxic, no distress, appears stated age, well-appearing Derm: Warm, dry, intact, no cyanosis Head: Atraumatic, normocephalic, symmetric Eyes: EOMI, anicteric sclera, PERRL Ears: Normal appearing, no external lesions, hearing intact Nose: Normal appearing, no external lesions Mouth: No lip lesion, mucus membranes moist, no tonsilar hypertrophy or exudate; partial edentulism Neck: Supple, without lesions, trachea midline Cardiovascular: S1-S2 regular, no murmur, no pedal edema Lungs: Mild diffuse expiratory wheezes, no rhonchi, no rales, no accessory muscl e use Abdominal: Soft, mild epigastric tenderness (not new, intermittent), bowel sounds present Extremities: Muscle strength 5/5 bilateral UE and LLE, radial pulses 2+ bilater al, posterior tibial pulse 1+ LLE Neuro: Alert, oriented x 4, gross neurological examination did not reveal any focal deficits. Cranial nerves II to XII grossly intact. Psych: Appropriate affect and mood Data Received Today: Labs: Sodium 135, potassium 4.2, BUN 8, creatinine 0.56, calcium 8.7, AST 270, ALT 372 Imagining: No new imaging Assessment and plan Patient is a 63-year-old female with a past medical history significant for COPD not on home oxygen and hyperlipidemia admitted for ORIF of the right ankle. #Leukocytosis with neutrophilic predominance, likely reactive to acute fracture - resolved -WBC 6.01 -Monitor CBC -afebrile #Hyperglycemia -No history of diabetes or steroid use -Hemoglobin A1c 5.5 #Nicotine dependence -Discussed smoking cessation -Nicotine 21 mg/24-hour patch daily ordered #Transaminitis -Continue to monitor CMP #Acute displaced oblique fractures of the distal tibial diaphysis and proximal fibular metadiaphysis -Management per orthopedic surgery -Pain management per orthopedic surgery She is medically optimized for discharge, will continue to follow this patient make any recommendations needed. Thank you very much for the consult. Chronic #COPD not on home oxygen -Continue home albuterol 4 times daily as needed -Continue home Singulair 10 mg p.o. at bedtime -Continue home Anoro Ellipta daily #Hyperlipidemia -Continue home Crestor 40 mg p.o. at bedtime #Depression/anxiety -Resume home Klonopin 0.5 mg twice daily #Glaucoma -Continue home medications DVT ppx: Per the orthopedic surgery team Code status: Full code F: NS 75 cc/h E: Replete as needed N: Regular diet A: Ambulatory Anticipated discharge place: Home Anticipated discharge time: 1-2 days Dictation was produced using [employer] dictation software. please excuse any grammatical, word or spelling errors. I have seen and evaluated the patient today. Discussed with the resident and agree with the residents finding and plan as documented in the resident's note. Changes highlighted in blue font. Objective - Vital Signs Vital signs: Vital Signs Temp 98.0 F 04/01/24 07:53 Pulse 76 04/01/24 07:53 Resp 18 04/01/24 07:53 BP 98/53 04/01/24 07:53 Pulse Ox 96 04/01/24 07:53 FiO2 Intake & Output 03/31/24 04/01/24 04/01/24 18:59 06:59 18:59 Intake Total 1800 Output Total 350 600 Balance 1450 -600 Intake: IV 1800 Output: Urine 300 600 Estimated Blood Loss 50 Other: Voiding Method External Catheter External Catheter - Labs CBC & Chem 7: 03/31/24 16:43 04/01/24 03:09 Labs: Abnormal Lab Results - Last 24 Hours (Table) 03/31/24 03/31/24 03/31/24 Range/Units 03:03 03:03 16:43 MCV 97.6 H (80.0-97.0) FL MCHC 31.0 L 31.4 L (32.0-37.0) g/dL Lymphocytes # 0.46 L (0.90-5.00) X 10*3/uL Monocytes # 0.13 L (0.20-1.00) X 10*3/uL Eosinophils # 0.02 L 0.01 L (0.04-0.35) X 10*3/uL Sodium (137-145) mmol/L Glucose 115 H (70-110) mg/dL Calcium 8.6 L (8.7-10.3) mg/dL AST (14-36) U/L ALT (4-34) U/L Total Protein (6.3-8.2) g/dL Albumin (3.5-5.0) g/dL 04/01/24 Range/Units 03:09 MCV (80.0-97.0) FL MCHC (32.0-37.0) g/dL Lymphocytes # (0.90-5.00) X 10*3/uL Monocytes # (0.20-1.00) X 10*3/uL Eosinophils # (0.04-0.35) X 10*3/uL Sodium 135 L (137-145) mmol/L Glucose 123 H (70-110) mg/dL Calcium (8.7-10.3) mg/dL AST 270 H (14-36) U/L ALT 372 H (4-34) U/L Total Protein 5.3 L (6.3-8.2) g/dL Albumin 3.3 L (3.5-5.0) g/dL
[2024-04-01] MEDS: ACETAMINOPHEN TAB 325 MG TAB PO PRN (13:56)
[2024-04-01] MEDS: LATANOPROST 0.005% OPHTH DROPS 2.5 ML BTL BOTH EYES SCH (20:10)
[2024-04-02 05:47] LABS: ALT 139 U/L (4-34); AST 55 U/L (14-36); African American GFR (CKD) >90 (>60 ml/min/1.73 sqM); Albumin/Globulin Ratio 1.2; Alkaline Phosphatase 61 U/L (38-126); Anion Gap 2 mmol/L; Blood Urea Nitrogen 11 mg/dL (7-17); Carbon Dioxide 25 mmol/L (22-30); Chloride 111 mmol/L (98-107); Globulin 1.7 g/dL; Glucose 78 mg/dL (74-99); Non-African American GFR(CKD) >90 (>60 ml/min/1.73 sqM); Sodium 138 mmol/L (137-145); Total Bilirubin 0.5 mg/dL (0.2-1.3); Total Protein 3.7 g/dL (6.3-8.2)
[2024-04-02 06:22] LABS: Basophils % (A) 0 %; Eosinophils % (A) 1 %; HCT 31.7 % (34.0-46.0); HGB 10.1 gm/dL (11.4-16.0); Lymphocytes # (A) 1.5 k/uL (1.0-4.8); Lymphocytes % (A) 27 %; MCHC 31.7 g/dL (31.0-37.0); MCV 97.7 fL (80.0-100.0); Mean Platelet Volume 8.3; Monocytes # (A) 0.4 k/uL (0-1.0); Monocytes % (A) 7 %; Neutrophils # (A) 3.5 k/uL (1.3-7.7); Neutrophils % (A) 63 %; Platelet Count 173 k/uL (150-450); RBC 3.25 m/uL (3.80-5.40); RDW 12.8 % (11.5-15.5); WBC 5.6 k/uL (3.8-10.6)
[2024-04-02 07:25] LABS: Calcium 5.9 mg/dL (8.4-10.2)
[2024-04-02] MEDS: POTASSIUM CHLORIDE ER 20 MEQ TAB.ER PO SCH (08:33)
[2024-04-02] MEDS: LACTOBACILLUS ACIDOPHILUS/PECT 1 EACH CAPSULE PO SCH (08:34)
--- NOTE | 2024-04-02 09:48 | XR ---
EXAMINATION TYPE: XR chest 2V DATE OF EXAM: 04/02/2024 9:36 AM COMPARISON: None. CLINICAL INDICATION: Female, 63 years old with history of cough, SOB, TECHNIQUE: XR chest 2V view(s) obtained. FINDINGS: The heart size is normal. The pulmonary vasculature is normal. The lungs are clear. There is some elevation of the left diaphragm which was present previously. IMPRESSION: 1. No acute pulmonary process. [facility], , 04/02/2024 9:45 AM
--- NOTE | 2024-04-02 10:18 | P.PN ---
Subjective Progress Note Date: 04/02/24 Principal diagnosis: Right tib-fib fracture. Status post insertion of intramedullary nail right tibia. The patient is seen and examined at bedside. She is a 63-year-old female who is from [place] was here visiting her father and was getting out of her car and slipped and fell. She had sudden acute pain in her right leg. She is with her daughter. She did not lose consciousness but was unable to get up and had obvious deformity in her right lower extremity with her pain. She denies any chest pain or shortness of breath. She denies any prior history of problems or injury in the right leg. She denied any problems in her upper extremities her neck or back or her other leg. She says she does have history of COPD and emphysema. She has been on disability because of this for several years. She denies any changes to bowel bladder function. Denies any other specific pain or trauma other than her right leg. The patient was taken to surgery on 03/31/2024 for closed reduction with insertion of intramedullary nail of the right tibia. 04/02/2024: The patient is postop day #2 status post intramedullary nailing of the right tibia. She has no new complaints or concerns today. She denies nausea or vomiting. She is having some soreness in the top of her foot. She is afebrile. Objective - Vital Signs Vital signs: Vital Signs Temp 98.2 F 04/02/24 07:10 Pulse 94 04/02/24 09:28 Resp 17 04/02/24 07:10 BP 115/66 04/02/24 07:10 Pulse Ox 98 04/02/24 07:10 FiO2 Intake & Output 04/01/24 04/02/24 04/02/24 18:59 06:59 18:59 Output Total 400 100 Balance -400 -100 Output: Urine 400 100 Other: Voiding Method External Catheter Bedside Commode Bedside Commode # Voids 2 1 2 # Bowel Movements 1 - Exam This is a pleasant 63-year-old female in no acute distress. She is alert and oriented x 3. Exam of the right lower extremity reveals that her dressing is clean, dry and intact. She has fairly good foot and ankle motion without difficulty or pain. Neurovascular status to the right lower extremity is intact. - Labs CBC & Chem 7: 04/02/24 04:41 04/02/24 04:41 Labs: Abnormal Lab Results - Last 24 Hours (Table) 04/02/24 04/02/24 Range/Units 04:41 04:41 RBC 3.25 L (3.80-5.40) m/uL Hgb 10.1 L D (11.4-16.0) gm/dL Hct 31.7 L (34.0-46.0) % Potassium 3.0 L (3.5-5.1) mmol/L Chloride 111 H (98-107) mmol/L Creatinine 0.50 L (0.52-1.04) mg/dL Calcium 5.9 L* (8.4-10.2) mg/dL AST 55 H (14-36) U/L ALT 139 H (4-34) U/L Total Protein 3.7 L (6.3-8.2) g/dL Albumin 2.0 L (3.5-5.0) g/dL Assessment and Plan Assessment: Status post right tib-fib fracture. Status post intramedullary nailing right tibia. Plan: The clinical findings are discussed with the patient. She will continue with physical therapy. We are planning possible discharge tomorrow. The patient is originally from [place] and will stay in our area for a couple of weeks postoperatively.
[2024-04-02 10:33] LABS: Influenza A Not Detected (Not Detectd); Influenza B Not Detected (Not Detectd); RSV Not Detected (Not Detectd)
--- NOTE | 2024-04-02 11:02 | P.PN ---
Subjective Progress Note Date: 04/02/24 Patient is a 63-year-old female with past medical history significant for COPD not on home oxygen, anxiety, and hyperlipidemia. She is admitted to orthopedic surgery and we are consulted for preoperative medical evaluation. She presented to the emergency department today after she slipped on ice, twisted her right leg, and fell onto her buttocks while getting out of the car. She denied hitting her head or loss of consciousness. She states that she was only outside for about 5 minutes after this fall as she was able to crawl inside and her niece called EMS. She denies fever/chills, nausea/vomiting, chest pain, dyspnea, cough, palpitations, hematuria, melena/hematochezia. She reports unchanged intermittent epigastric pain. She is not on anticoagulation. At this time she has no significant complaints other than the ankle pain. She is a current smoker (1+ppd). She denies alcohol/recreational drug use. She is ambulatory without assistance normally. patient denies any episodes of WI, CHF exacerbation , arrhythmia or syncope in the past 1 month, denies any history of CVA, CAD, CHF, DM , or CKD 03/31/24 - Patient seen and examined at bedside this morning. No acute events overnight. Surgery to repair right tib/fib fracture scheduled for today, 03/31/2024. She was resting comfortably in bed, with no acute complaints at this time. 04/01/24 - Patient seen and examined at bedside this morning. No acute events overnight. General when her surgery yesterday, stated that she feels. She was resting comfortably bed, with no acute complaints at this time. Utilizing 3 L nasal cannula while saturating 96% this morning. Blood pressure remains soft at 98/53. She was seen by the physical therapy team, and began work on how to best maneuver utilizing a walker upon discharge. 04/02/24 - Patient seen and examined at bedside this morning. No acute events overnight. States she continues to have some generalized pain and tenderness postsurgically in her right lower extremity however has no acute complaints at this time and was seen resting comfortably in her chair. She continues to utilize 3 L nasal cannula while saturating the 90% with worsening cough, chest x-ray and Cepheid 4 Plex ordered. Goal today is to continue to wean off of supplemental oxygen. Blood pressures remain somewhat soft. Encouraged to use incentive spirometer up to 10 times per hour when awake. REVIEW OF SYSTEMS: Pertinent positives and negatives noted in HPI. Physical Exam: General: Nontoxic, no distress, appears stated age, well-appearing Derm: Warm, dry, intact, no cyanosis Head: Atraumatic, normocephalic, symmetric Eyes: EOMI, anicteric sclera, PERRL Ears: Normal appearing, no external lesions, hearing intact Nose: Normal appearing, no external lesions Mouth: No lip lesion, mucus membranes moist, no tonsilar hypertrophy or exudate; partial edentulism Neck: Supple, without lesions, trachea midline Cardiovascular: S1-S2 regular, no murmur, no pedal edema Lungs: Decreased BS BL, no rhonchi, no rales, no accessory muscle use Abdominal: Soft, mild epigastric tenderness (not new, intermittent), bowel sounds present Extremities: Muscle strength 5/5 bilateral UE and LLE, radial pulses 2+ bilateral, posterior tibial pulse 1+ LLE Neuro: Alert, oriented x 4, gross neurological examination did not reveal any focal deficits. Cranial nerves II to XII grossly intact. Psych: Appropriate affect and mood Data Received Today: Labs: WBC 5.6, hemoglobin 10.1, hematocrit 31.7, platelet 173; sodium 138, potassium 3.0, chloride 111, BUN 11, creatinine 0.50, calcium 5.9, AST 55, ALT 139, albumin 2.0; ionized calcium 4.7 Imagining: -Chest x-ray showed no acute cardiopulmonary process Assessment and plan Patient is a 63-year-old female with a past medical history significant for COPD not on home oxygen and hyperlipidemia admitted for ORIF of the right ankle. #New onset worsening cough with Hypoxia -Cepheid 4 Plex ordered, currently pending -Chest x-ray showed no acute cardiopulmonary process -Wean oxygen -Encourage incentive spirometer. #Leukocytosis with neutrophilic predominance, likely reactive to acute fracture - resolved -WBC 6.01 -Monitor CBC -afebrile #Hyperglycemia, resolved -No history of diabetes or steroid use -Hemoglobin A1c 5.5 #Nicotine dependence -Discussed smoking cessation -Nicotine 21 mg/24-hour patch daily ordered #Transaminitis, improving -Continue to monitor CMP #New onset hypocalcemia -Calcium 5.9, albumin 2.0 -Corrected calcium 7.57.9 -Ionized calcium 4.7 #New onset hypokalemia -CMP showed potassium 3.0 -Given potassium chloride 40 mEq every 2 hour (total of 2 doses) -Recheck BMP/CMP this afternoon and tomorrow #Acute displaced oblique fractures of the distal tibial diaphysis and proximal fibular metadiaphysis -Management per orthopedic surgery -Pain management per orthopedic surgery Chronic #COPD not on home oxygen -Continue home albuterol 4 times daily as needed -Continue home Singulair 10 mg p.o. at bedtime -Continue home Anoro Ellipta daily #Hyperlipidemia -Continue home Crestor 40 mg p.o. at bedtime #Depression/anxiety -Resume home Klonopin 0.5 mg twice daily #Glaucoma -Continue home medications DVT ppx: Per the orthopedic surgery team Code status: Full code F: NS 75 cc/h E: Replete as needed N: Regular diet A: Ambulatory Anticipated discharge place: Home Anticipated discharge time: 1-2 days Dictation was produced using [employer] dictation software. please excuse any grammatical, word or spelling errors. I have seen and evaluated the patient today. Discussed with the resident and agree with the residents finding and plan as documented in the resident's note. Changes highlighted in blue font. Objective - Vital Signs Vital signs: Vital Signs Temp 98.2 F 04/02/24 00:38 Pulse 96 04/02/24 00:38 Resp 16 04/02/24 00:38 BP 105/57 04/02/24 00:38 Pulse Ox 93 L 04/02/24 00:38 FiO2 Intake & Output 04/01/24 04/02/24 04/02/24 18:59 06:59 18:59 Output Total 400 100 Balance -400 -100 Output: Urine 400 100 Other: Voiding Method External Catheter Bedside Commode # Voids 2 1 # Bowel Movements 1 - Labs CBC & Chem 7: 04/02/24 04:41 04/02/24 15:03 Labs: Abnormal Lab Results - Last 24 Hours (Table) 04/02/24 04/02/24 Range/Units 04:41 04:41 RBC 3.25 L (3.80-5.40) m/uL Hgb 10.1 L D (11.4-16.0) gm/dL Hct 31.7 L (34.0-46.0) % Potassium 3.0 L (3.5-5.1) mmol/L Chloride 111 H (98-107) mmol/L Creatinine 0.50 L (0.52-1.04) mg/dL Calcium 5.9 L* (8.4-10.2) mg/dL AST 55 H (14-36) U/L ALT 139 H (4-34) U/L Total Protein 3.7 L (6.3-8.2) g/dL Albumin 2.0 L (3.5-5.0) g/dL
[2024-04-03 04:29] LABS: Basophils % (A) 1 %; Eosinophils # (A) 0.2 k/uL (0-0.7); Eosinophils % (A) 3 %; HCT 35.3 % (34.0-46.0); HGB 11.3 gm/dL (11.4-16.0); Lymphocytes # (A) 1.8 k/uL (1.0-4.8); Lymphocytes % (A) 27 %; MCHC 31.9 g/dL (31.0-37.0); MCV 97.2 fL (80.0-100.0); Mean Platelet Volume 8.3; Monocytes # (A) 0.4 k/uL (0-1.0); Monocytes % (A) 6 %; Neutrophils # (A) 4.2 k/uL (1.3-7.7); Neutrophils % (A) 63 %; Platelet Count 194 k/uL (150-450); RBC 3.64 m/uL (3.80-5.40); RDW 12.9 % (11.5-15.5); WBC 6.6 k/uL (3.8-10.6)
[2024-04-03 04:42] LABS: ALT 138 U/L (4-34); AST 43 U/L (14-36); African American GFR (CKD) >90 (>60 ml/min/1.73 sqM); Albumin 2.9 g/dL (3.5-5.0); Albumin/Globulin Ratio 1.4; Alkaline Phosphatase 77 U/L (38-126); Anion Gap 3 mmol/L; Blood Urea Nitrogen 10 mg/dL (7-17); Calcium 8.6 mg/dL (8.4-10.2); Carbon Dioxide 32 mmol/L (22-30); Chloride 99 mmol/L (98-107); Globulin 2.1 g/dL; Glucose 100 mg/dL (74-99); Magnesium 2.1 mg/dL (1.6-2.3); Non-African American GFR(CKD) >90 (>60 ml/min/1.73 sqM); Potassium 4.2 mmol/L (3.5-5.1); Sodium 134 mmol/L (137-145); Total Bilirubin 1.1 mg/dL (0.2-1.3)
--- NOTE | 2024-04-03 10:33 | P.PN ---
Subjective Progress Note Date: 04/03/24 Principal diagnosis: Right tib-fib fracture. Status post insertion of intramedullary nail right tibia. The patient is seen and examined at bedside. She is a 63-year-old female who is from [place] was here visiting her father and was getting out of her car and slipped and fell. She had sudden acute pain in her right leg. She is with her daughter. She did not lose consciousness but was unable to get up and had obvious deformity in her right lower extremity with her pain. She denies any chest pain or shortness of breath. She denies any prior history of problems or injury in the right leg. She denied any problems in her upper extremities her neck or back or her other leg. She says she does have history of COPD and emphysema. She has been on disability because of this for several years. She denies any changes to bowel bladder function. Denies any other specific pain or trauma other than her right leg. The patient was taken to surgery on 03/31/2024 for closed reduction with insertion of intramedullary nail of the right tibia. 04/02/2024: The patient is postop day #2 status post intramedullary nailing of the right tibia. She has no new complaints or concerns today. She denies nausea or vomiting. She is having some soreness in the top of her foot. She is afebrile. 04/03/2024: The patient is postop day #3 status post intramedullary nailing of the right tibia. She has no new complaints or concerns today. She states that she does have increased swelling to the lower leg. She denies nausea, vomiting or diarrhea. She is afebrile. Objective - Vital Signs Vital signs: Vital Signs Temp 97.8 F 04/03/24 07:35 Pulse 88 04/03/24 09:51 Resp 19 04/03/24 07:35 BP 143/73 04/03/24 07:35 Pulse Ox 94 L 04/03/24 09:38 FiO2 Intake & Output 04/02/24 04/03/24 04/03/24 18:59 06:59 18:59 Other: Voiding Method Bedside Commode Bedside Commode Bedside Commode # Voids 3 1 1 - Exam This is a pleasant 63-year-old female in no acute distress. She is alert and oriented x 3. Exam of the right lower extremity reveals that her dressing has been changed. Incisions look good. There is significant ecchymosis and swelling to the lower leg. She has no tenderness with palpation about the calf. She is having difficulty achieving full dorsiflexion of the foot and passively I am having a difficult time getting her to full dorsiflexion. She is able to wiggle her toes. Pedal pulse is +1/4. Neurovascular status to the lower extremity is intact. - Labs CBC & Chem 7: 04/03/24 03:35 04/03/24 03:35 Labs: Abnormal Lab Results - Last 24 Hours (Table) 04/03/24 04/03/24 Range/Units 03:35 03:35 RBC 3.64 L (3.80-5.40) m/uL Hgb 11.3 L (11.4-16.0) gm/dL Sodium 134 L (137-145) mmol/L Carbon Dioxide 32 H (22-30) mmol/L Creatinine 0.48 L (0.52-1.04) mg/dL Glucose 100 H (74-99) mg/dL AST 43 H (14-36) U/L ALT 138 H (4-34) U/L Total Protein 5.0 L (6.3-8.2) g/dL Albumin 2.9 L (3.5-5.0) g/dL Assessment and Plan Assessment: Status post right tib-fib fracture. Status post intramedullary nailing right tibia. (1) Fall Current Visit: Yes Status: Acute Code(s): W19.XXXA - UNSPECIFIED FALL, INITIAL ENCOUNTER SNOMED Code(s): 6534239 (2) Right tibial fracture Current Visit: Yes Status: Acute Code(s): S82.201A - UNSP FRACTURE OF SHAFT OF RIGHT TIBIA, INIT FOR CLOS FX SNOMED Code(s): 26924351 Plan: The clinical findings are discussed with the patient. She will continue with physical therapy. I will order an equalizer boot for mobilization and to help get her foot up to 90 degrees. We are planning possible discharge tomorrow. The patient is originally from [place] and will stay in our area for a couple of weeks postoperatively. Agree with the above. will obtain equilizer boot for patient. encourage motion at knee and ankle. 50% weight bearing. likely discharge tomorrow.
--- NOTE | 2024-04-03 14:05 | US ---
EXAMINATION TYPE: US venous doppler duplex LE RT DATE OF EXAM: 04/03/2024 1:55 PM COMPARISON: NONE CLINICAL INDICATION: Female, 63 years old with history of R/O DVT; Hx tib/fib FX, No hx of DVT. Pain TECHNIQUE: The lower extremity deep venous system is examined utilizing real time linear array sonog johnny with graded compression, color doppler sonography, and spectral doppler. SIDE PERFORMED: Right FINDINGS: VESSELS IMAGED: Common Femoral Vein Deep Femoral Vein Greater Saphenous Vein * Femoral Vein Popliteal Vein Small Saphenous Vein * Proximal Calf Veins (* superficial vessels) Right Leg: No evidence of DVT, Color Doppler imaging shows patency of the vessels. Unable to visualize PTV or peroneal veins at calf/ankle. IMPRESSION: No ultrasound evidence for deep venous thrombosis. [facility], , 04/03/2024 2:03 PM
--- NOTE | 2024-04-03 14:16 | P.PN ---
Subjective Progress Note Date: 04/03/24 Patient was seen and examined. Pain is well controlled. No complaints. CBC and CMP significant for RBC 3.64, Hg 11.3, Na 134, bicarb 32, Cr 0.48, glu 100, AST 43, ALT 138. COVID, RSV, Flu neg. CXR no acute process. General: Nontoxic, no distress, appears at stated age Derm: Warm, dry Head: Atraumatic, normocephalic, symmetric Eyes: EOMI, no lid lag, anicteric sclera, right ptosis Mouth: No lip lesion, mucus membranes moist Cardiovascular: S1S2 reg, no murmur Lungs: CTA bilateral, no rhonchi, no rales, no accessory muscle use, supplemental oxygen Ext: No gross muscle atrophy, no edema, no contractures Neuro: no focal neuro deficits Psych: Alert, oriented, appropriate affect Based on my assessment of this patient, this patient meets a high complexity level of care. Acute blood loss anemia: Expected result of surgery. Hypoxia: Usually nocturnal. CXR and COVID/RSV/Flu neg. Possible component of sleep apnea. Discussed outpatient workup. Incentive spirometer. Home O2 eval prior to discharge. Transaminitis: Unknown etiology. Stable. Downtrending. Outpatient workup. COPD not in acute exacerbation: Albuterol neb PRN. Performist 20 mcg INH BID. Singulair 10 mg PO QD. Spiriva 2 INH QD. Dyslipidemia: Lipitor 80 mg PO QHS. Depression and anxiety: Klonopin 0.5 mg PO BID. Glaucoma: Latanoprost eye drops. Acute displaced oblique fractures of the distal tibial diaphysis and proximal fibular metadiaphysis managed by Orthopedic surgery CODE STATUS: FULL CODE DVT Prophylaxis: Lovenox SQ GI Prophylaxis: Designated medical POA if patient is not able to make medical decisions for themselves: I have reviewed the following [employer] consultant notes: Ortho note. I have reviewed the results of the following tests: CBC, CMP, COVID/RSV/Flu. I have ordered the following tests: I have discussed the care of this patient with the following independent historian: I have independently interpreted the following test below: CXR. I have discussed the management of this patient with the following physician: Objective - Vital Signs Vital signs: Vital Signs Temp 97.8 F 04/03/24 07:35 Pulse 88 02/23/25 09:51 Resp 19 04/03/24 07:35 BP 143/73 04/03/24 07:35 Pulse Ox 94 L 04/03/24 09:38 FiO2 Intake & Output 04/02/24 04/03/24 04/03/24 18:59 06:59 18:59 Other: Voiding Method Bedside Commode Bedside Commode Bedside Commode # Voids 3 1 1 - Labs CBC & Chem 7: 04/03/24 03:35 04/03/24 03:35 Labs: Abnormal Lab Results - Last 24 Hours (Table) 04/03/24 04/03/24 Range/Units 03:35 03:35 RBC 3.64 L (3.80-5.40) m/uL Hgb 11.3 L (11.4-16.0) gm/dL Sodium 134 L (137-145) mmol/L Carbon Dioxide 32 H (22-30) mmol/L Creatinine 0.48 L (0.52-1.04) mg/dL Glucose 100 H (74-99) mg/dL AST 43 H (14-36) U/L ALT 138 H (4-34) U/L Total Protein 5.0 L (6.3-8.2) g/dL Albumin 2.9 L (3.5-5.0) g/dL
[2024-04-04 02:04] VITALS: RESP 18
[2024-04-04 07:55] VITALS: BP 123/75; PULSE 86; TEMP 98.5
[2024-04-04] MEDS: ENOXAPARIN 40 MG/0.4 ML SYRINGE SQ SCH (08:57)
--- NOTE | 2024-04-04 08:57 | P.DS ---
Providers Date of admission: 03/31/24 08:51 Expected date of discharge: 04/04/24 Attending physician: Albino Nam Consults: 03/30/24 16:56 Consult Physician Urgent Consulting Provider: Mony Veliz Consult Reason/Comments: right leg tib/fib fracture Do you want consulting provider notified?: Already Contacted Primary care physician: Stated None - Discharge Diagnosis(es) (1) Right leg pain Current Visit: Yes Status: Acute (2) COPD (chronic obstructive pulmonary disease) Current Visit: Yes Status: Acute (3) Hyperlipidemia Current Visit: Yes Status: Acute (4) Nicotine dependence Current Visit: Yes Status: Acute (5) Fall Current Visit: Yes Status: Acute (6) Right fibular fracture Current Visit: Yes Status: Acute (7) Right tibial fracture Current Visit: Yes Status: Acute Hospital Course: This is a pleasant 63-year-old female who presented with right tibia and fibular fracture status post fall. She was admitted for other treatment and evaluation and underwent closed reduction internal fixation with intramedullary patricia of the right tibia performed on 03/31/2024. The patient tolerated the procedure well and did well postoperatively. Her pain has been better controlled over the weekend. She was having some increased pain and swelling in her right lower extremity. The splint has been removed. Since that time her pain is much better controlled. Her basil remain intact over the surgical sites of the right lower extremity. There is no active drainage. Patient is now able to perform some dorsiflexion and plantarflexion on the right. Patient feels she has been improving and would be ready for discharge today. Prescription has been written, signed, and provided to case management to obtain a premium equalizer boot for the right lower extremity. We discussed boot must be delivered and fitted appropriately prior to clearance for discharge home from an orthopedic standpoint. Patient is also being seen and examined by medicine. Patient must be cleared by medicine prior to discharge. Ultrasound Doppler performed on the right lower extremity yesterday was negative for DVT. Condition on day of discharge stable. Patient will be discharged locally to [facility] where she is residing currently. She is currently visiting family in [facility]. She resides in [place], [place]. She is planning to remain in town over the next 1 to 2 weeks for further treatment and evaluation postoperatively. We will plan to have her follow-up this coming 04/08/2024 for treatment evaluation in the outpatient setting. Patient was cleared preoperatively for surgery by general medicine. Patient currently denies any nausea, vomiting, fever, or chills. Patient is eating and voiding freely without difficulty. [place] to remain intact over the surgical sites of the right lower extremity. Patient should keep surgical sites clean, dry, and intact. No standing water. Patient may sleep without premium equalizer boot intact. Patient may weight-bear with 50% weightbearing on the right lower extremity with the premium equalizer boot intact. When not sleeping, patient should keep this premade equalizer boot intact. MAPS has been reviewed today, 04/04/2024, with an Overall Overdose Risk Score of 000. An "Opiod Start Talking" Form has been signed and placed in the patient's chart. A prescription has been written for Hydrocodone 5 mg / 325 mg, 1 tab, every 4 hours, as needed for acute pain, dispense #42. Prescription is sent to the [facility] pharmacy located in [place], [place]. Patient's other medical diagnoses include hyperglycemia, nicotine dependence, and COPD. Physical Exam on day of discharge: Patient is awake, alert, and oriented 3 Vital signs stable Good chest excursion with deep inspiration and expiration Dressing over the right lower extremity has been removed Basil remain intact over the surgical sites of the right lower extremity No active drainage from the surgical sites at the right lower extremity No obvious sign of infection at the surgical sites at the right lower extremity No pain with palpation over the right thigh Neurovascular intact right lower extremity Patient is able to perform some dorsiflexion and plantarflexion on the right Significant bruising over the right anterior and medial calf of the right lower extremity Right calf is soft with palpation No pain with palpation over the right calf Patient is able to wiggle toes of the right foot without difficulty Procedures: Closed reduction internal fixation with intramedullary patricia of the right tibia performed on 03/31/2024 Patient Condition at Discharge: Stable Plan - Discharge Summary Discharge Rx Participant: No New Discharge Prescriptions: New HYDROcodone/APAP 5-325MG [[place] 5] 1 each PO Q4HR PRN #42 tab PRN Reason: Pain No Action Acetaminophen [Tylenol 8 Hour] 650 mg PO DAILY Albuterol Sulfate [Ventolin HFA] 2 puff INHALATION RT-QID PRN PRN Reason: Shortness Of Breath L.acidoph,Paracasei, B.lactis [Probiotic] 1 cap PO DAILY Montelukast [Singulair] 10 mg PO HS Propylene Glycol/Peg 400/Pf [Systane 0.3-0.4% Ophth Dropperette] 1 drop BOTH EYES QID PRN PRN Reason: Dry Eye(S) Travoprost [Travatan Z 0.004%] 1 drop BOTH EYES HS Clonazepam Odt 0.5mg 0.5 mg PO BID Acetaminophen [Tylenol 8 Hour] 650 mg PO DAILY PRN PRN Reason: Pain Rosuvastatin Calcium [Crestor] 40 mg PO HS Umeclidinium Brm/Vilanterol Tr [Anoro Ellipta 62.5-25 Mcg INH] 1 puff INHALATION RT-DAILY Discharge Medication List Acetaminophen [Tylenol 8 Hour] 650 mg PO DAILY 03/30/24 [History] Acetaminophen [Tylenol 8 Hour] 650 mg PO DAILY PRN 03/30/24 [History] Albuterol Sulfate [Ventolin HFA] 2 puff INHALATION RT-QID PRN 03/30/24 [History] Clonazepam Odt 0.5mg 0.5 mg PO BID 03/30/24 [History] L.acidoph,Paracasei, B.lactis [Probiotic] 1 cap PO DAILY 03/30/24 [History] Montelukast [Singulair] 10 mg PO HS 03/30/24 [History] Propylene Glycol/Peg 400/Pf [Systane 0.3-0.4% Ophth Dropperette] 1 drop BOTH EYES QID PRN 03/30/24 [History] Rosuvastatin Calcium [Crestor] 40 mg PO HS 03/30/24 [History] Travoprost [Travatan Z 0.004%] 1 drop BOTH EYES HS 03/30/24 [History] Umeclidinium Brm/Vilanterol Tr [Anoro Ellipta 62.5-25 Mcg INH] 1 puff INHALATION RT-DAILY 03/30/24 [History] HYDROcodone/APAP 5-325MG [[place] 5] 1 each PO Q4HR PRN #42 tab 04/04/24 [Rx] Follow up Appointment(s)/Referral(s): Albino Nam DO [Doctor of Osteopathic Medicine] - 04/08/24 (Patient may follow-up with Dr. Leonardo Nam at [facility] on 04/08/2024, following discharge. ) None,Stated [Primary Care Provider] - 1-2 days Activity/Diet/Wound Care/Special Instructions: 1. Patient may weight-bear 50% on the right lower extremity. 2. Patient may utilize walker to aid in ambulation as needed 3. Keep surgical basil the right lower extremity clean, dry, and intact 4. Take medications as prescribed 5. Keep premium equalizer boot intact at all times except while sleeping Discharge Disposition: HOME SELF-CARE
--- NOTE | 2024-04-04 16:29 | P.PN ---
Subjective Progress Note Date: 04/04/24 Patient was seen and examined. Pain is well controlled. No complaints. Plans for home O2 eval prior to discharge which was discussed with RN. General: Nontoxic, no distress, appears at stated age Derm: Warm, dry Head: Atraumatic, normocephalic, symmetric Eyes: EOMI, no lid lag, anicteric sclera, right ptosis Mouth: No lip lesion, mucus membranes moist Cardiovascular: S1S2 reg, no murmur Lungs: CTA bilateral, no rhonchi, no rales, no accessory muscle use Ext: No gross muscle atrophy, no edema, no contractures Neuro: no focal neuro deficits Psych: Alert, oriented, appropriate affect Based on my assessment of this patient, this patient meets a high complexity level of care. Acute blood loss anemia: Expected result of surgery. Hypoxia: Usually nocturnal. CXR and COVID/RSV/Flu neg. Possible component of sleep apnea. Discussed outpatient workup. Incentive spirometer. Home O2 eval prior to discharge. Transaminitis: Unknown etiology. Stable. Downtrending. Outpatient workup. COPD not in acute exacerbation: Albuterol neb PRN. Performist 20 mcg INH BID. Singulair 10 mg PO QD. Spiriva 2 INH QD. Dyslipidemia: Lipitor 80 mg PO QHS. Depression and anxiety: Klonopin 0.5 mg PO BID. Glaucoma: Latanoprost eye drops. Acute displaced oblique fractures of the distal tibial diaphysis and proximal fibular metadiaphysis managed by Orthopedic surgery CODE STATUS: FULL CODE DVT Prophylaxis: Lovenox SQ GI Prophylaxis: Designated medical POA if patient is not able to make medical decisions for themselves: I have reviewed the following real estate listing consultant notes: Ortho note. I have reviewed the results of the following tests: I have ordered the following tests: I have discussed the care of this patient with the following independent historian: RN. I have independently interpreted the following test below: I have discussed the management of this patient with the following physician: Objective - Vital Signs Vital signs: Vital Signs Temp 98.5 F 04/04/24 07:54 Pulse 86 04/04/24 07:54 Resp 18 04/04/24 07:54 BP 123/75 04/04/24 07:54 Pulse Ox 93 L 04/04/24 10:26 FiO2 Intake & Output 04/03/24 04/04/24 04/04/24 18:59 06:59 18:59 Intake Total 240 Balance 240 Intake: Oral 240 Other: Voiding Method Bedside Commode Bedside Commode # Voids 2 3 # Bowel Movements 1 - Labs CBC & Chem 7: 04/03/24 03:35 04/03/24 03:35
== END 2024-04-04 15:21 | disposition home health service (06) | DRG 493 ==
LOC: EC 14:58 → OBSVTOIN 16:31 → 4SSUR 16:31 → UNDOADMOB 17:08 → 1SOBS 18:19 → 4SSUR 18:19 → 1SOBS 18:23 → INTOOBSV 03-31 08:51 → OBSVTOIN 03-31 08:51
PROVIDERS: ADMIT Orthopaedic Surgery Orthopaedic Surgery of the Spine; ATTEND Orthopaedic Surgery Orthopaedic Surgery of the Spine
PROC: 0QSJ34Z Reposition Right Fibula with Internal Fixation Device, Percutaneous Approach (ICD-10-PCS; principal; 2024-03-31 11:05)
PROC: 0QSG34Z Reposition Right Tibia with Internal Fixation Device, Percutaneous Approach (ICD-10-PCS; principal; 2024-03-31 11:05)
PROC: 0QSG36Z Reposition Right Tibia with Intramedullary Internal Fixation Device, Percutaneous Approach (ICD-10-PCS; principal; 2024-03-31 11:05)
DX: S82.231A Displaced oblique fracture of shaft of right tibia, initial encounter for closed fracture (principal); D62 Acute posthemorrhagic anemia; S82.831A Other fracture of upper and lower end of right fibula, initial encounter for closed fracture; J43.9 Emphysema, unspecified; F32.A Depression, unspecified; E83.51 Hypocalcemia; D72.828 Other elevated white blood cell count; E78.5 Hyperlipidemia, unspecified; F17.210 Nicotine dependence, cigarettes, uncomplicated; R73.9 Hyperglycemia, unspecified; F41.9 Anxiety disorder, unspecified; R09.02 Hypoxemia; R74.01 Elevation of levels of liver transaminase levels; H40.9 Unspecified glaucoma; E87.6 Hypokalemia; W00.0XXA Fall on same level due to ice and snow, initial encounter; Z79.1 Long term (current) use of non-steroidal anti-inflammatories (NSAID); Z79.899 Other long term (current) drug therapy; Z71.6 Tobacco abuse counseling
CPT/HCPCS: 29505; 36415; 71046; 80048; 80053; 81003; 82330; 83036; 83735; 84132; 85025; 85610; 85730; 87636; 88307; 88311; 93005; 94640; 94760; 96374; 99285